=== PATIENT | female | born 1965 | race Caucasian/White ===

== ENCOUNTER 2017-05-04 14:23 | Emergency (ER) | payer OTHER ==
[~2017-05-04] VITALS: Ht 175.3 cm; Wt 93.2 kg
[2017-05-04] MEDS ORDERED: ULTRACET1 TABLET PO (17:27)
[2017-05-04] MEDS ORDERED: MOTRIN600 MG PO (17:27)
[2017-05-04 17:41] VITALS: BP 158/89
== END 2017-05-04 17:42 | disposition home or self-care (01) ==
LOC: RME 14:23 → EME 14:23 → RME 17:42
DX: S61.212A Laceration without foreign body of right middle finger without damage to nail, initial encounter (principal); W28.XXXA Contact with powered lawn mower, initial encounter; Z23 Encounter for immunization
CPT/HCPCS: 73130; 99281; 99284; S0020